=== PATIENT | male | born 1980 | race Caucasian/White ===

== ENCOUNTER 2021-09-17 00:31 | Emergency (ER) | payer OTHER ==
[~2021-09-17] VITALS: Ht 180.3 cm; Wt 115.7 kg
[~2021-09-17 00:31] MED LIST: XANAX 0.5 MG0.5 M1 PO
[2021-09-17] MEDS ORDERED: ACYCLOVIR200 MG/5 M PO (00:41)
[2021-09-17 02:03] VITALS: BP 124/71
== END 2021-09-17 02:03 | disposition home or self-care (01) ==
LOC: M.ERS 00:31
DX: M25.361 Other instability, right knee (principal); Z98.890 Other specified postprocedural states; Z79.899 Other long term (current) drug therapy; Y04.0XXA Assault by unarmed brawl or fight, initial encounter; Y93.89 Activity, other specified; Y92.89 Other specified places as the place of occurrence of the external cause; Y99.8 Other external cause status